=== PATIENT | female | born 1930 | race Caucasian/White ===

== ENCOUNTER 2018-02-22 13:30 | Outpatient (RCR) | payer MEDICARE, MEDICAID | END 2018-03-04 | disposition home or self-care (01) | LOC: EDBD 13:30 → PTY 13:30 | DX: M48.07 Spinal stenosis, lumbosacral region (principal) ==

== ENCOUNTER 2018-03-09 10:50 | Outpatient (RCR) | payer MEDICARE, MEDICAID | END 2018-04-03 | disposition home or self-care (01) | LOC: PTY 10:50 | DX: M48.07 Spinal stenosis, lumbosacral region (principal) ==

== ENCOUNTER 2018-04-06 10:55 | Outpatient (RCR) | payer MEDICARE, MEDICAID | END 2018-05-04 | disposition home or self-care (01) | LOC: PTY 10:55 | DX: M48.07 Spinal stenosis, lumbosacral region (principal) ==

== ENCOUNTER 2018-05-31 13:25 | Outpatient (RCR) | payer MEDICARE, MEDICAID | END 2018-06-03 | disposition home or self-care (01) | LOC: PTY 13:25 | DX: M48.07 Spinal stenosis, lumbosacral region (principal) | CPT/HCPCS: 97110; 97140; G8979; G8980 ==